=== PATIENT | female | born 1975 | race Caucasian/White ===

== ENCOUNTER → 2019-12-21 09:35 | Outpatient (BNVA) | payer OTHER, SELFPAY | PROVIDERS: Family Provider Nurse Practitioner Family; Visit Provider Internal Medicine | DX: R76.8 Other specified abnormal immunological findings in serum (principal) | CPT/HCPCS: 36415; 85651; 86140; 86812; 99203 ==

== ENCOUNTER 2019-12-27 08:10 | Outpatient (CLI) | payer OTHER, SELFPAY ==
--- NOTE | 2019-12-27 08:19 | XR_ITS ---
WS: [id number] LEFT FOOT: 2 VIEW(S) TECHNIQUE: AP and lateral. HISTORY: foot pain COMPARISON: None available. No acute fracture or dislocation. Normal tarsal/metatarsal alignment. No soft tissue abnormality or bone destruction. Enthesopathy Achilles tendon attachment. XR/XR foot LT 2V [id number] IMPRESSION: Normal LEFT foot.
--- NOTE | 2019-12-27 08:19 | XR_ITS ---
WS: [id number] Bilateral knees, upright. HISTORY: Pain and abnormal immunological findings. Upright AP knees demonstrates mild narrowing of the medial compartments. No subchondral osseous lesio ns. No joint effusions. No erosions or subluxation. No soft tissue abnormalities. XR/[place] [id number] IMPRESSION: 1. Mild narrowing medial compartments of each knee. 2. No joint effusions or erosions.
--- NOTE | 2019-12-27 08:19 | XR_ITS ---
WS: [id number] LEFT HAND: 2 VIEW(S) TECHNIQUE: PA and lateral. HISTORY: hand pain COMPARISON: None available. No acute fracture or dislocation. No soft tissue or bone abnormality. No erosion or subluxation. Very minimal narrowing of the interphalangeal joints. XR/XR hand LT 2V [id number] IMPRESSION: Mild osteoarthritis.
--- NOTE | 2019-12-27 08:19 | XR_ITS ---
WS: [id number] RIGHT FOOT: 2 VIEW(S) TECHNIQUE: AP and lateral. HISTORY: foot pain COMPARISON: None available. No acute fracture or dislocation. No erosion or subluxation or osteopenia. Normal tarsal/metatarsal alignment. No soft tissue abnormality or bone destruction. XR/XR foot RT 2V [id number] IMPRESSION: Normal RIGHT foot.
--- NOTE | 2019-12-27 08:19 | XR_ITS ---
WS: [id number] BILATERAL AP HIPs: AP VIEW(S) TECHNIQUE: AP only. HISTORY: hip pain COMPARISON: None available. Very minimal narrowing of the hip joints bilaterally with small osteophytes from the superior acetabu lum. No bone destruction or fractures. No subluxation or erosions. Mild degenerative changes in the visualized SI joint also. XR/XR hip BI 2V wo/w pel [id number] IMPRESSION: Minimal bilateral hip joint arthritis.
--- NOTE | 2019-12-27 08:19 | XR_ITS ---
WS: [id number] RIGHT HAND: 2 VIEW(S) TECHNIQUE: PA and lateral. HISTORY: hand pain COMPARISON: None available. No acute fracture or dislocation. No soft tissue or bone abnormality. No osteopenia. XR/XR hand RT 2V [id number] IMPRESSION: Normal RIGHT hand.
== END 2019-12-27 08:11 | disposition home or self-care (01) ==
LOC: RADWPI 08:15
PROVIDERS: Family Provider Registered Nurse; PCP Registered Nurse; Visit Provider Internal Medicine
DX: M79.672 Pain in left foot (principal); M79.671 Pain in right foot; M79.642 Pain in left hand; M79.641 Pain in right hand; M25.552 Pain in left hip; M25.551 Pain in right hip; M25.561 Pain in right knee; M25.562 Pain in left knee; M19.042 Primary osteoarthritis, left hand
CPT/HCPCS: 73120; 73521; 73565; 73620

== ENCOUNTER → 2019-12-30 08:50 | Outpatient (BNVA) | payer OTHER, SELFPAY | PROVIDERS: Family Provider Registered Nurse; PCP Registered Nurse; Visit Provider Internal Medicine | DX: M53.3 Sacrococcygeal disorders, not elsewhere classified (principal); R76.8 Other specified abnormal immunological findings in serum; Z79.899 Other long term (current) drug therapy | CPT/HCPCS: 36415; 99213 ==

== ENCOUNTER 2021-03-04 07:51 | Outpatient (CLI) | payer OTHER, SELFPAY ==
--- NOTE | 2021-03-04 08:15 | XR_ITS ---
WS: [id number] Exam: XR KUB [id number] Date/Time of Exam: 03/04/2021 7:56 AM Reason For Exam: R10.9 - Unspecified abdominal pain Comparison 07/30/2007. No bowel obstruction or free air. Signs of prior cholecystectomy and bilateral tubal ligation. No sig n of organ enlargement. Regional bony elements are unremarkable. XR/XR KUB [id number] IMPRESSION: 1. No acute abdominal finding.
== END 2021-03-04 07:52 | disposition home or self-care (01) ==
LOC: RAD 07:53
PROVIDERS: PCP Registered Nurse; Visit Provider Nurse Practitioner Family
DX: R10.9 Unspecified abdominal pain (principal)
CPT/HCPCS: 74018

== ENCOUNTER → 2022-05-13 14:01 | Outpatient (BNVA) | payer OTHER, SELFPAY | PROVIDERS: PCP Registered Nurse; Referring Provider Registered Nurse; Visit Provider Nurse Practitioner Family | DX: D48.9 Neoplasm of uncertain behavior, unspecified (principal); L72.0 Epidermal cyst; L81.4 Other melanin hyperpigmentation; D22.9 Melanocytic nevi, unspecified | CPT/HCPCS: 88305 ==

== ENCOUNTER → 2022-10-30 12:10 | Outpatient (BNVA) | payer OTHER, SELFPAY | PROVIDERS: PCP Registered Nurse; Visit Provider Internal Medicine | DX: R76.8 Other specified abnormal immunological findings in serum (principal); M19.072 Primary osteoarthritis, left ankle and foot | CPT/HCPCS: 36415; 73600; 80053; 83516; 85025; 85651; 86140; 86480; 86704; 86803; 87340; 99213 ==

== ENCOUNTER → 2022-11-11 08:15 | Outpatient (BNVA) | payer OTHER, SELFPAY | PROVIDERS: PCP Registered Nurse; Visit Provider Nurse Practitioner Family | DX: D22.9 Melanocytic nevi, unspecified (principal) | CPT/HCPCS: 17003; 11102; 17000; 99213 ==

== ENCOUNTER → 2022-12-10 08:08 | Outpatient (BNVA) | payer OTHER, SELFPAY | PROVIDERS: PCP Registered Nurse; Visit Provider Dermatology | DX: L72.0 Epidermal cyst (principal) | CPT/HCPCS: 11402; 12032 ==

== ENCOUNTER → 2022-12-17 11:04 | Outpatient (BNVA) | payer OTHER, SELFPAY | PROVIDERS: PCP Registered Nurse; Visit Provider Internal Medicine Cardiovascular Disease | DX: R07.9 Chest pain, unspecified (principal); M79.89 Other specified soft tissue disorders; R76.8 Other specified abnormal immunological findings in serum; F41.9 Anxiety disorder, unspecified; F32.A Depression, unspecified; Z87.891 Personal history of nicotine dependence; R94.31 Abnormal electrocardiogram [ECG] [EKG] | CPT/HCPCS: 93005; 99204 ==

== ENCOUNTER 2022-12-25 06:05 | Outpatient (CLI) | payer OTHER, SELFPAY ==
--- NOTE | 2022-12-25 06:30 | USCV_ITS ---
Camille Cunha Age: 47 Gender: F : 1975 Exam Date: 12/25/2022 06:40 Ordering Phys: Mari Ji MD ([email or web address]) Technologist: ENMA Exam Location: [facility] [place] Indication: SHORTNESS OF BREATH BP: 132 / 84 HR: 75 Rhythm: Sinus Technical Quality: Adequate MEASUREMENTS (Male / Female) Normal Values 2D ECHO LVOT Diameter 2.0 cm LV Ejection Fraction MOD 2C 62.5 % LV Ejection Fraction 2C AL 61.9 % LA Diameter 2.8 cm LA Width 3.3 cm LA Height 4.4 cm RA Width 3.8 cm RA Height 4.2 cm Aorta at Sinotubular Diameter 2.7 cm IVC Diameter 1.5 cm M-MODE Aortic Annulus Diameter 3.5 cm LA Ao Ratio MM 0.7 MV E Point Septal Separation 0.7 cm DOPPLER AV Peak Velocity 113.0 cm/s LVOT Peak Velocity 109.0 cm/s AV Area Cont Eq vti 2.9 cm squared AV Area Cont Eq pk 3.0 cm squared MV Peak Velocity 95.0 cm/s MV Area PHT 5.0 cm squared Mitral E to A Ratio 1.1 MV E' Velocity 47.5 cm/s Mitral E to MV E' Ratio 6.0 Mitral E to LV E' Lateral Ratio 5.2 Mitral E to LV E' Septal Ratio 7.1 TR Peak Velocity 188.1 cm/s TR Peak Gradient 14.2 mmHg TR Mean Velocity 162.2 cm/s TR Mean Gradient 10.8 mmHg TR Velocity Time Integral 63.5 cm TV Peak E Velocity 55.0 cm/s Right Atrial Pressure 3.0 mmHg Pulmonary Artery Systolic Pressu 17.2 mmHg PV Peak Velocity 84.0 cm/s RV Acceleration Time 0.1 s RV Ejection Time 0.4 s RV AcT/ET 0.3 FINDINGS Left Ventricle Normal left ventricular size, systolic function and wall thickness, with no regional wall motion abnormalities. Left ventricular ejection fraction is estimated at 60 %. Normal diastolic function. Right Ventricle Normal right ventricular size and systolic function. Right ventricular systolic pressure 17.2 mmHg. Right Atrium Normal right atrial size. Left Atrium Normal left atrial size. Mitral Valve Structurally normal mitral valve. No mitral valve stenosis. Trace mitral valve regurgitation. Aortic Valve Structurally normal trileaflet aortic valve. No aortic valve stenosis. No aortic valve regurgitation. Tricuspid Valve Structurally normal tricuspid valve. Trace to mild tricuspid valve regurgitation. Pulmonic Valve Pulmonic valve not well visualized. Trace pulmonary valve regurgitation. Pericardium No pericardial effusion. Aorta Normal size aortic root and proximal ascending aorta. IVC Normal IVC dimension with >50% respiratory change of the inferior vena cava. CONCLUSIONS 1. Normal left ventricular size, systolic function and wall thickness, with no regional wall motion abnormalities. Left ventricular ejection fraction is estimated at 60 %. Normal diastolic function. 2. Trace to mild tricuspid valve regurgitation. 3. No prior similar studies to compare. Mari Ji MD (Electronically Signed) Final Date: 29 December 2022 23:19 S
== END 2022-12-25 06:06 | disposition home or self-care (01) ==
PROVIDERS: PCP Registered Nurse; Visit Provider Internal Medicine Cardiovascular Disease
DX: R06.02 Shortness of breath (principal); I07.1 Rheumatic tricuspid insufficiency
CPT/HCPCS: 93306; 99024

== ENCOUNTER → 2022-12-30 10:22 | Outpatient (BNVA) | payer OTHER, SELFPAY | PROVIDERS: PCP Registered Nurse; Visit Provider Internal Medicine Cardiovascular Disease | DX: M79.89 Other specified soft tissue disorders (principal) | CPT/HCPCS: 80048; 83735; 83880 ==

== ENCOUNTER → 2023-07-20 09:13 | Outpatient (BNVA) | payer OTHER, SELFPAY | PROVIDERS: PCP Registered Nurse; Visit Provider Nurse Practitioner Family | DX: M79.89 Other specified soft tissue disorders (principal) | CPT/HCPCS: 36415; 80048; 83880; 99213; 99214 ==

== ENCOUNTER 2023-07-28 11:23 | Outpatient (CLI) | payer OTHER, SELFPAY ==
--- NOTE | 2023-07-28 12:00 | USCV_ITS ---
Camille Cunha Age: 48 Gender: F : 1975 Exam Date: 07/28/2023 11:53 Ordering Phys: Maryanne Dodge Technologist: ENMA [place] [facility] [place]: HISTORY: Lower extremity edema. PROCEDURES: Venous duplex imaging was performed in bilateral lower extremities. Bilaterally, the common femoral, superficial femoral, profunda femoral, popliteal, posterior tibial, greater saphenous veins, and the peroneal trunk were identified and interrogated in the standard fashion. These veins were found to be easily compressible with spontaneous blood flow. No evidence of insufficiency or thrombus noted. Serial compression, augmentation maneuvers, and spectral Doppler flow evaluation were performed. An evaluation for venous insufficiency was also completed. FINDINGS: The veins were found to be easily compressible with spontaneous blood flow. Non pulsatile flow pattern. No significant venous reflux CONCLUSIONS No evidence of DVT in the above-mentioned identifiable veins. No significant venous reflux in the above-mentioned veins Dr Rebecca Ornelas MD [facility] (Electronically Signed) Final Date: 31 July 2023 10:45 S
== END 2023-07-28 11:24 | disposition home or self-care (01) ==
LOC: RAD 11:24
PROVIDERS: PCP Registered Nurse; Visit Provider Nurse Practitioner Family
DX: M79.89 Other specified soft tissue disorders (principal)
CPT/HCPCS: 93970

== ENCOUNTER → 2023-08-19 09:57 | Outpatient (BNVA) | payer OTHER, SELFPAY | PROVIDERS: PCP Registered Nurse; Visit Provider Nurse Practitioner Family | DX: R60.0 Localized edema (principal); Z87.891 Personal history of nicotine dependence | CPT/HCPCS: 99213 ==

== ENCOUNTER → 2024-06-24 09:45 | Outpatient (BNVA) | payer OTHER, SELFPAY | PROVIDERS: PCP Registered Nurse; Visit Provider Nurse Practitioner Family | DX: L24.9 Irritant contact dermatitis, unspecified cause (principal); F42.4 Excoriation (skin-picking) disorder; L29.89 Other pruritus; Z08 Encounter for follow-up examination after completed treatment for malignant neoplasm | CPT/HCPCS: 99213 ==

== ENCOUNTER 2024-10-03 17:11 | Emergency (ER) | payer OTHER, SELFPAY ==
[2024-10-03 17:23] VITALS: BP 144/90; PULSE 81; RESP 18; TEMP 36.7; O2SAT 96
--- NOTE | 2024-10-03 17:33 | W.ED.PSYCHS ---
HPI - Psych General: Chief Complaint: Psychiatric Symptoms Stated Complaint: SI Time Seen by Provider: 10/03/24 17:23 History of Present Illness: Patient is a 49-year-old female with longstanding history of depression that reports to ED with suicide ideations. Patient states she wants to run her car into a tree. She realizes that she needs psychiatric help and would like to be admitted for further medication adjustment. She states compliance to her dual duloxetine, buspirone, and Rexulti. Denies any other symptoms. No dysuria, no abdominal pain, no chest pain Associated symptoms: Deny depression Related Data Home Medications ?Medication ?Instructions ?Recorded ?Confirmed dimenhydrinate 50 mg tablet 50 mg PO Q8H PRN dizziness or 12/21/19 08/19/23 (Dramamine) vertigo duloxetine 60 mg capsule,delayed 120 mg PO DAILY 12/21/19 08/19/23 release conj estrogen-medroxyprogesterone 1 tab PO DAILY 12/17/22 08/19/23 0.45 mg-1.5 mg tablet (Prempro) fluticasone propionate 50 1 spray intranasal DAILY PRN 12/17/22 08/19/23 mcg/actuation nasal spray,suspension hydrochlorothiazide 25 mg tablet 25 mg PO DAILY 12/17/22 08/19/23 nystatin 100,000 unit/gram topical 1 applic topical BID 12/17/22 08/19/23 cream phentermine 37.5 mg capsule 37.5 mg PO DAILY 12/17/22 08/19/23 valacyclovir 500 mg tablet 500 mg PO DAILY PRN 12/17/22 08/19/23 Previous Rx's ?Medication ?Instructions ?Recorded mupirocin 2 % topical ointment 1 applic topical BID #22 grams 06/10/22 furosemide 20 mg tablet 20 mg PO DAILY #30 tabs 07/20/23 Allergies Allergy/AdvReac Type Severity Reaction Status Date / Time clothiapine Allergy hives Verified 08/19/23 10:01 doxycycline Allergy nausea and Verified 08/19/23 10:01 vomiting levofloxacin Allergy unsure Verified 08/19/23 10:01 oxycodone Allergy itching Verified 08/19/23 10:01 vortioxetine Allergy unknown Verified 08/19/23 10:01 Review of Systems General: Reports: 10 or more systems reviewed and unremarkable except in HPI and below Const: Denies: fever(s) or chills Eyes: Denies: change in vision or blurry vision ENMT: Denies: throat pain, mouth pain or ear or mastoid pain Card: Denies: chest pain or palpitations Resp: Denies: dyspnea or productive cough GI: Denies: abdominal pain, nausea or vomiting : Denies: flank pain or difficulty voiding Musc: Denies: neck pain, back pain, extremity pain or joint pain Skin/Breast: Denies: rash or pruritus Neuro: Denies: headache(s) or numbness in extremities Psych: Denies: anxiety or depression All/Imm: Denies: urticaria or throat swelling PFSH ED PFSH: Medical History History of nonmelanoma skin cancer Anxiety and depression Sacroiliac joint disease Rheumatoid arthritis Surgical History H/O tubal ligation Hx of section Hx of cholecystectomy Hx of hysterectomy History of colonoscopy Family History Mother Cancer Congestive heart failure (CHF) Grandfather Myocardial infarction Family/Other Diabetes Other CAD (coronary artery disease) Social History Smoking and tobacco/nicotine status: never used tobacco/nicotine Alcohol intake: never Substance/Drug Use: never Physical Exam Const: COMMON NORMALS: no acute distress, average body habitus, patient oriented x3 and no limitations GENERAL APPEARANCE: cooperative, comfortable and well kempt; not anxious, not combative and not disheveled ORIENTATION/CONSCIOUSNESS: Yes awake, Yes oriented to person, Yes oriented to place and Yes oriented to time HENMT: COMMON NORMALS: normocephalic, atraumatic and hearing grossly normal bilaterally HEAD & SCALP: normocephalic and atraumatic FACE & SINUS: normal facial exam Eye: COMMON NORMALS: Equal, round and reactive pupils present PUPIL: Yes Equal, round and reactive pupils present and Yes Pupil accommodation reflex normal Chest: COMMONS NORMALS: normal inspection of the chest Resp: COMMON NORMALS: normal respiratory effort and clear to auscultation bilaterally AUSCULTATION: clear to auscultation bilaterally Cardio: COMMON NORMALS: regular rate and regular rhythm RATE: regular rate RHYTHM: regular rhythm GI: COMMON NORMALS: Normal to inspection, nondistended, normoactive bowel sounds present, Soft to palpation and non-tender PALPATION: Yes Soft to palpation : COMMON NORMALS: Yes no CVA tenderness BLADDER/KIDNEY EXAM: Yes no CVA tenderness Back/Pelvis: COMMON NORMALS: no CVA tenderness Extremity: COMMON NORMALS: normal to inspection, full ROM and capillary refill normal Neuro: COMMON NORMALS: patient oriented x3 and CN's II-XII intact bilaterally SENSORIUM/ORIENTATION: Yes oriented to person, Yes oriented to place and Yes oriented to time MOTOR EXAM: 5/5 motor strength present throughout and no tremor noted Psych: COMMON NORMALS: speech normal APPEARANCE: Yes well kempt ATTITUDE: Yes calm ACTIVITY/MOTOR BEHAVIOR: Yes Avoids eye contact (attititude/behavior) SPEECH: Yes normal speech MOOD & AFFECT: Yes depressed mood and Yes sad THOUGHT CONTENT: Yes Suicidality present ATTENTION/CONCENTRATION: Yes attention grossly intact Skin: COMMON NORMALS: no rashes or lesions noted GENERAL SKIN EXAM: no rashes or lesions noted NAILS: normal Course Reevaluation(s): Reevaluation #1: Patient is improved after olanzapine and is calm at bedside. Denies any request for any additional anxiety medication. Vital Signs: Vital signs: Vital Signs Temperature 98.1 F 10/03/24 17:23 Pulse Rate 77 10/03/24 23:53 Respiratory Rate 18 10/03/24 20:56 Blood Pressure 115/70 10/03/24 23:53 Pulse Oximetry 95 10/03/24 23:53 Oxygen Delivery Me thod Room Air 10/03/24 20:56 MDM - Psych Medical Decision Making Patient is a 49-year-old female with longstanding history of depression with suicide ideas. She has a plan. She would like to be admitted to psychiatric unit. Screening labs have been ordered. She agrees with medication for anxiety. Olanzapine ordered x 1. Will obtain workup and contact psychiatric physician. No beds at this facility, other facilities have been contacted for acceptance. Patient is wanting to have inpatient psychiatric care Patient was accepted at [place]. Awaiting ambulance transfer. Patient will be signed out to Dr. Cook Lab Data 10/03/24 18:41 10/03/24 18:41 Laboratory Results WBC 7.89 10^3/uL (3.29-11.43) 10/03/24 18:41 RBC 4.45 10^6/uL (3.85-5.65) 10/03/24 18:41 Hgb 12.90 g/dL (11.27-16.99) 10/03/24 18:41 Hct 38.9 % (36-47) 10/03/24 18:41 MCV 87.4 fl (85-98) 10/03/24 18:41 MCH 29.0 pg (27-33) 10/03/24 18:41 MCHC 33.2 g/dL (30-55) 10/03/24 18:41 RDW 12.2 % (12.1-15.1) 10/03/24 18:41 Plt Count 222 10^3/cmm (157-399) 10/03/24 18:41 MPV 8.7 fL (7.4-10.4) 10/03/24 18:41 Neut % (Auto) 49.5 % 10/03/24 18:41 Lymph % (Auto) 42.7 % 10/03/24 18:41 Kaufman % (Auto) 6.1 % 10/03/24 18:41 Eos % (Auto) 0.8 % 10/03/24 18:41 Baso % (Auto) 0.5 % 10/03/24 18:41 Neut # (Auto) 3.91 10^3/uL (1.8-7.7) 10/03/24 18:41 Lymph # (Auto) 3.4 10^3/uL (0.8-4.8) 10/03/24 18:41 Kaufman # (Auto) 0.5 10^3/uL (0.2-0.9) 10/03/24 18:41 Eos # (Auto) 0.1 10^3/uL (0.0-0.8) 10/03/24 18:41 Baso # (Auto) 0.0 10^3/uL (0.0-0.1) 10/03/24 18:41 Nucleated RBC % (auto) 0 % 10/03/24 18: Nucleated RBCs # 0.0 /100WBC 10/03/24 18:41 Sodium 140 mmol/L (136-145) 10/03/24 18:41 Potassium 3.7 mmol/L (3.5-5.1) 10/03/24 18:41 Chloride 104 mmol/L (98-107) 10/03/24 18:41 Carbon Dioxide 25 mmol/L (22-29) 10/03/24 18:41 Anion Gap 14.7 (5-19) 10/03/24 18:41 BUN 8 mg/dL (6-20) 10/03/24 18:41 Creatinine 0.6 mg/dL (0.5-0.9) 10/03/24 18:41 GFR Calculation 107.2 mL/min (90-130) 10/03/24 18:41 Glucose 83 mg/dL (65-115) 10/03/24 18:41 Calculated Osmolality 287 mOsm/kg (285-295) 10/03/24 18:41 Calcium 8.8 mg/dL (8.5-10.5) 10/03/24 18:41 Total Bilirubin 0.3 mg/dL (0.15-1.2) 10/03/24 18:41 AST 10 U/L (0-32) 10/03/24 18:41 ALT 10 U/L (0-33) 10/03/24 18:41 Alkaline Phosphatase 79 U/L (35-105) 10/03/24 18:41 Total Protein 6.7 g/dL (6.6-8.7) 10/03/24 18:41 Albumin 3.7 g/dL (3.5-5.2) 10/03/24 18:41 Globulin 3.0 g/dL (1.3-4.6) 10/03/24 18:41 TSH 1.32 uIU/mL (0.27-4.20) 10/03/24 18:41 HCG, Qual Negative (Negative) 10/03/24 17:25 Urine Color Yellow (Yellow) 10/03/24 17: Urine Appearance Clear (CLEAR) 10/03/24 17: Urine pH 5.5 (5-7) 10/03/24 17: Ur Specific [place] 1.008 (1.005-1.030) 10/03/24 17:25 Urine Protein Negative (Negative) 10/03/24 17: Urine Glucose (UA) Negative (Normal) 10/03/24 17:25 Urine Ketones Negative (Negative) 10/03/24 17:25 Urine Blood Negative (Negative) 10/03/24 17:25 Urine Nitrate Negative (Negative) 10/03/24 17:25 Urine Bilirubin Negative (Negative) 10/03/24 17:25 Urine Urobilinogen 1.0 mg/dL (Negative) 10/03/24 17:25 Ur Leukocyte Esterase 1+ (Negative) A 10/03/24 17:25 Urine RBC 0-2 /hpf (0-2) 10/03/24 17:25 Urine WBC 6-10 /hpf (0-5) 10/03/24 17:25 Ur Squamous Epith Cells 0-5 /hpf (0-5) 10/03/24 17:25 Amorphous Sediment Not Reportable 10/03/24 17:25 Urine Bacteria Trace /hpf (NONE) 10/03/24 17:25 Hyaline Casts 0-4 /lpf H 10/03/24 17:25 Salicylates < 0.3 mg/dL (3-10) L 10/03/24 18:41 Urine Opiates Screen Negative ng/mL (Negative) 10/03/24 17:25 Acetaminophen < 5.0 ug/mL (10-30) L 10/03/24 18:41 Ur Barbiturates Screen Negative ng/mL (Negative) 10/03/24 17:25 Ur Phencyclidine Scrn Negative ng/mL (Negative) 10/03/24 17:25 Ur Amphetamines Screen Negative ng/mL (Negative) 10/03/24 17:25 U Benzodiazepines Scrn Negative ng/mL (Negative) 10/03/24 17:25 Urine Cocaine Screen Negative ng/mL (Negative) 10/03/24 17:25 U Marijuana (THC) Screen Negative ng/mL (Negative) 10/03/24 17:25 Ethyl Alcohol < 10 mg/dL (0-10) 10/03/24 18:41 Influenza A (PCR) Negative (Negative) 10/03/24 17:37 Influenza Type B (PCR) Negative (Negative) 10/03/24 17:37 RSV (PCR) Negative (Negative) 10/03/24 17:37 SARS-CoV-2 (PCR) Negative (Negative) 10/03/24 17:37 No radiology studies performed this visit EKG Data EKG 1: Interpretation: Normal sinus rhythm, normal axis, rate of 67, QTc 404 Discharge Plan Discharge Patient Disposition: Xfer Psychiatric Hosp Clinical Impression: Suicidal ideation, Acute anxiety Condition: Stable Referrals: Asia White NP [Primary Care Provider, Nurse Practitioner] Discharge Diet: Usual diet Discharge Activity: Resume usual activity Print Language: Czech Coding Level of Care Code ED Clean Out Driller Helper for Yecenia Aldridge
[2024-10-03 17:37] LABS: HCG Qualitative Urine. Negative (Negative)
--- NOTE | 2024-10-03 17:38 | ECG_ITS ---
[facility] Test Date: 2024-10-03 Pat Name: Camille Cunha Department: Room: Gender: Female [employer]: : 1975 Requested By: Kristie Garcia Order Number: [id number] Nini MD: Rebecca Ornelas M.D. Measurements Intervals [place] Rate: 67 P: 22 NJ: 103 QRS: 49 QRSD: 99 T: 76 QT: 389 QTc: 411 Interpretive Statements SINUS RHYTHM WITH SHORT [place] INTERVAL NONSPECIFIC T-WAVE ABNORMALITY Compared to ECG 12/17/2022 11:10:52 Short [place] interval now present T-wave abnormality still present Electronically Signed On 10-03-2024 21:50:05 CDT by Rebecca Ornelas M.D. [email or web address]
[2024-10-03 17:50] LABS: Bilirubin Urine Negative (Negative); Blood Urine Negative (Negative); Glucose Urine UA Negative (Normal); Ketones Urine Negative (Negative); Leukocyte Esterase Urine 1+ (Negative); Nitrate Urine Negative (Negative); Protein Urine Negative (Negative); Specific Gravity, Urine 1.008 (1.005-1.030); Urine Appearance Clear (CLEAR); Urine Color Yellow (Yellow); pH Urine 5.5 (5-7)
[2024-10-03 17:53] LABS: Add Urine Microscopic? YES; Bacteria Urine Trace /hpf; Hyaline Casts Urine 0-4 /lpf; RBC Urine 0-2 /hpf (0-2); Squamous Epithelial Cell Urine 0-5 /hpf (0-5)
[2024-10-03 17:57] LABS: Amphetamines Screen Urine Negative (Negative); Barbiturates Screen Urine Negative (Negative); Benzodiazepines Screen Urine Negative (Negative); Cocaine Screen Urine Negative (Negative); Opiate Screen Urine Negative (Negative); PCP Screen Urine Negative (Negative); THC Screen Urine Negative (Negative)
[2024-10-03] MEDS: OLANZapine 5 mg ODT PO (18:31)
[2024-10-03 18:50] LABS: Influenza A NEGATIVE (Negative); Influenza B NEGATIVE (Negative); Respiratory Syncytial Virus Ce NEGATIVE (Negative); SARS-CoV-2 PCR NEGATIVE (Negative)
[2024-10-03 19:02] LABS: Basophils % 0.5 %; Eosinophils # 0.1 10^3/uL (0.0-0.8); Eosinophils % 0.8 %; Hematocrit 38.9 % (36-47); Lymphocytes # 3.4 10^3/uL (0.8-4.8); Lymphocytes % 42.7 %; Mean Corpuscular HGB Conc 33.2 g/dL (30-55); Mean Corpuscular Volume 87.4 fl (85-98); Mean Platelet Volume 8.7 fL (7.4-10.4); Monocytes # 0.5 10^3/uL (0.2-0.9); Monocytes % 6.1 %; Neutrophils # 3.91 10^3/uL (1.8-7.7); Neutrophils % 49.5 %; Nucleated Red Blood Cells % 0 %; Platelet Count 222 10^3/cmm (157-399); Red Blood Count 4.45 10^6/uL (3.85-5.65); Red Cell Distribution Width 12.2 % (12.1-15.1); White Blood Count 7.89 10^3/uL (3.29-11.43)
[2024-10-03 19:28] LABS: Alanine Aminotransferase 10 U/L (0-33); Albumin Level 3.7 g/dL (3.5-5.2); Alkaline Phosphatase 79 U/L (35-105); Anion Gap 14.7 (5-19); Aspartate Amino Transferase 10 U/L (0-32); Blood Urea Nitrogen 8 mg/dL (6-20); Calcium 8.8 mg/dL (8.5-10.5); Carbon Dioxide 25 mmol/L (22-29); Chloride 104 mmol/L (98-107); Creatinine Clr Calc Pharmacy 155.6831; Glomerular Filtration Rate 107.2 mL/min (90-130); Glucose 83 mg/dL (65-115); Osmolality Calculated 287 mOsm/kg (285-295); Potassium 3.7 mmol/L (3.5-5.1); Sodium 140 mmol/L (136-145); Thyroid Stimulating Hormone 1.32 uIU/mL (0.27-4.20); Total Bilirubin 0.3 mg/dL (0.15-1.2); Total Protein 6.7 g/dL (6.6-8.7)
[2024-10-03 19:29] LABS: Acetaminophen < 5.0 ug/mL (10-30); Alcohol Level < 10 mg/dL (0-10); Salicylate < 0.3 mg/dL (3-10)
[2024-10-03 20:56] VITALS: BP 115/70; PULSE 77; RESP 18; O2SAT 95
[2024-10-03 23:53] VITALS: BP 115/70; PULSE 77; O2SAT 95
[2024-10-04 03:49] VITALS: BP 136/93; PULSE 67; RESP 16; TEMP 36.5; O2SAT 94
--- NOTE | 2024-10-04 06:54 | PC.NURSE ---
ASSUMED CARE OF PT AT 0653 FROM [facility].
--- NOTE | 2024-10-04 07:53 | PC.NURSE ---
PT GIVEN BREAKFAST TRAY.
[2024-10-04 08:28] VITALS: BP 140/70; PULSE 100; O2SAT 100
== END 2024-10-04 08:33 ==
PROVIDERS: Emergency Medicine; Emergency Provider Physician Assistant; PCP Nurse Practitioner Family
DX: R45.851 Suicidal ideations (principal); F41.8 Other specified anxiety disorders; Z11.52 Encounter for screening for COVID-19
CPT/HCPCS: 36415; 80053; 80306; 80307; 81001; 81025; 84443; 85025; 87637; 93005; 99285; J9999

== ENCOUNTER 2024-12-06 12:36 | Outpatient (CLI) | payer OTHER, SELFPAY ==
--- NOTE | 2024-12-06 12:40 | MM_ITS ---
WS: [id number] BILATERAL SCREENING DIGITAL TOMOSYNTHESIS MAMMOGRAM WITH CAD HISTORY: SCREENING COMPARISON: 11/04/2023, 11/18/2021, 06/09/2019 Bilateral CC and MLO views with tomosynthesis and synthetic mammography submitted. Computer aided detection analyzed. Breast composition: There are scattered areas of fibroglandular density. No suspicious masses, microcalcifications or architectural distortion. Asymmetry 12:00 LEFT breast middle depth is stable. There are a few benign calcifications in each breast. MM/MM [facility] tomosynthesis [id number] IMPRESSION: BI-RADS: 2 - Benign. FOLLOW UP: 1 Year Follow-up
== END 2024-12-06 12:37 | disposition home or self-care (01) ==
LOC: MOBLMAM 12:38
PROVIDERS: PCP Nurse Practitioner Family; Visit Provider Nurse Practitioner Family
DX: Z12.31 Encounter for screening mammogram for malignant neoplasm of breast (principal); R92.323 Mammographic fibroglandular density, bilateral breasts; N64.89 Other specified disorders of breast; R92.1 Mammographic calcification found on diagnostic imaging of breast
CPT/HCPCS: 77063; 77067

== ENCOUNTER 2025-02-07 20:05 | Outpatient (CLI) | payer OTHER, SELFPAY | END 2025-02-07 20:06 | disposition home or self-care (01) | LOC: SLEEP 20:10 | PROVIDERS: PCP Nurse Practitioner Family; Referring Provider Nurse Practitioner Family; Visit Provider Internal Medicine Pulmonary Disease | DX: G47.33 Obstructive sleep apnea (adult) (pediatric) (principal); G47.61 Periodic limb movement disorder | CPT/HCPCS: 95810 ==